=== PATIENT | male | born 1960 | race Caucasian/White ===

== ENCOUNTER 2024-11-26 08:59 | Day surgery (SDC) | payer OTHER ==
[2024-11-19 13:41] VITALS: BMI 31.2
[2024-11-26] MEDS: CYCLOPENTOLATE 2% OPHTH SOLN 2 ML BOTTLE ONE (09:20)
[2024-11-26] MEDS: TROPICAMIDE 1% 3 ML EYE DROPS ONE (09:20)
[2024-11-26] MEDS: CIPROFLOXACIN 0.3% EYE DROPS 5 ML BOTTLE ONE (09:20)
[2024-11-26] MEDS: PHENYLEPHRINE 2.5% OPTHALMIC DROP 2ML BOTTLE ONE (09:20)
[2024-11-26] MEDS ORDERED: TETRACAINE 0.5% OPHTH SOLN 2 ML BOTTLE ONE (09:31)
[2024-11-26] MEDS ORDERED: CARBACHOL 0.01% INTRA-OCULAR 1.5 ML VIAL ONE (09:31)
[2024-11-26] MEDS ORDERED: BSS (NA/CA/MG/K) BALANCED SALT SOLUTION OPHTH SOLN 15 ML BOTTLE ONE (09:31)
[2024-11-26] MEDS ORDERED: EPINEPHrine 1:1000 P/F - 1 MG/ML AMP ONE (09:31)
[2024-11-26] MEDS ORDERED: LIDOCAINE 1% P/F 10 MG/ML VIAL ONE (09:31)
[2024-11-26] MEDS ORDERED: NEO/POLYMYX B SULF/DEXAMETH OPHTHALMIC 5ML BOTTLE ONE (09:31)
[2024-11-26] MEDS ORDERED: EPI-SHUGARCAINE (EPINEPHRINE 0.025% & LIDOCAINE-PF 0.75%) 4ML ONE (10:38)
[2024-11-26] MEDS ORDERED: MIDAZOLAM HCL 2 MG/2 ML SINGLE DOSE VIAL ONE ×2 (10:41→10:54)
[2024-11-26 11:22] VITALS: PULSE 63; RESP 18; TEMP 97.4
[2024-11-26 11:51] VITALS: BP 124/71
== END 2024-11-26 12:01 | disposition home or self-care (01) ==
LOC: FASU 08:59
PROVIDERS: ATTEND Ophthalmology
PROC: 08RJ3JZ Replacement of Right Lens with Synthetic Substitute, Percutaneous Approach (ICD-10-PCS; principal; 2024-11-26 10:52)
DX: H26.8 Other specified cataract (principal)
CPT/HCPCS: 66984; V2632